=== PATIENT | male | born 1970 | race Caucasian/White ===

== ENCOUNTER 2019-11-23 12:53 | Emergency (ER) | payer OTHER ==
[2019-11-23 13:04] VITALS: BP 206/94
--- NOTE | 2019-11-23 13:04 | ER Document Report ---
HPI - HPI Patient complains to provider of: Right fourth finger injury Time Seen by Provider: 11/23/19 12:56 Onset: This morning Onset/Duration: Sudden Quality of pain: Achy Pain Level: 1 Context: Patient presents with right fourth finger deformity. Patient states that the dog's leash was around his hand and the dog took off to the side. Patient complains of pain only with movement of the finger. Associated Symptoms: Other - Right fourth finger injury Exacerbated by: Movement Relieved by: Remaining still Similar symptoms previously: No Recently seen / treated by doctor: No - ROS ROS below otherwise negative: Yes Systems Reviewed and Negative: Yes All other systems reviewed and negative - NEURO Neurology: DENIES: Weakness - GASTROINTESTINAL Gastrointestinal: DENIES: Nausea - MUSCULOSKELETAL Musculoskeletal: REPORTS: Extremity pain, Swelling - DERM Skin Color: Normal Skin Problems: None Past Medical History - General Information source: Patient - Social History Smoking Status: Never Smoker Frequency of alcohol use: None Drug Abuse: None Occupation: [employer] Lives with: Family Family History: Reviewed & Not Pertinent - Medical History Medical History: Negative - Past Medical History Cardiac Medical History: Denies: Hx Hypertension Surgical Hx: Negative Vertical Provider Document - CONSTITUTIONAL Agree With Documented VS: Yes Exam Limitations: No Limitations General Appearance: WD/WN, No Apparent Distress - HEENT HEENT: Atraumatic, Normocephalic - NECK Neck: Normal Inspection - RESPIRATORY Respiratory: Breath Sounds Normal, No Respiratory Distress - CARDIOVASCULAR Cardiovascular: Regular Rate, Regular Rhythm Pulses: Normal: Radial - BACK Back: Normal Inspection - MUSCULOSKELETAL/EXTREMETIES Musculoskeletal/Extremeties: Tender - Right fourth finger deformity with tenderness to the PIP joint middle phalanx, normal capillary refill - NEURO Level of Consciousness: Awake, Alert, Appropriate Motor/Sensory: No Sensory Deficit - DERM Integumentary: Warm, Dry Course - Re-evaluation Re-evalutation: 11/23/19 13:04 The patient has been informed that they may have pre-hypertension or hypertensi on based on a blood pressure reading in the emergency department. I recommend that patient call the primary care provider listed on their discharge instructions or a physician of their choice by this week to arrange follow-up for further evaluation of possible pre-hypertension or hypertension. 11/23/19 14:09 Dr. Alexandra to bedside for examination, Dr. Keen, orthopedic surgeon to bedside for examination. Unable to reduce finger, recommends having patient set up for surgery for tomorrow for repair. Patient states that he has to leave to go back to [place]. Patient insistent that he cannot stay for surgical repair. Patient advised that he should follow-up with the emergency department upon his arrival home and that he should not eat anything after midnight so that he may still be able to get an expedited surgery. Dr. Keen attempted reduction, he feels that patient will be most comfortable in a position of comfort at this time, does not recommend any splinting. - Diagnostic Test Radiology reviewed: Image reviewed, Reports reviewed Discharge - Discharge Clinical Impression: Elevated blood pressure reading Finger dislocation Qualifiers: Encounter type: initial encounter Qualified Code(s): S63.259A - Unspecified dislocation of unspecified finger, initial encounter Disposition: AGAINST MEDICAL ADVICE Additional Instructions: Return immediately if you would like to continue with your treatment. Follow-up with an emergency department tomorrow for evaluation by an orthopedic surgeon as you need surgical repair of the finger. It is advised that you stay and have a surgical repair of the finger. Do not eat anything after midnight so that when you present to the emergency department at home it may help to expedite your surgical repair. Referrals: ALBANIA KEEN JR, DO [ACTIVE PROVISIONAL STAFF] - Follow up as needed
[2019-11-23] MEDS ORDERED: LIDOCAINE 1% INJ (10 MG/ML) 10 ML MDV INJ ONE (13:30)
--- NOTE | 2019-11-23 14:14 | RADIOLOGY REPORT (SQ) ---
EXAM DESCRIPTION: FINGER RIGHT IMAGES COMPLETED DATE/TIME: 11/23/2019 1:27 pm REASON FOR STUDY: r 4th finger, pulled in dog leash COMPARISON: None. NUMBER OF VIEWS: Three views. TECHNIQUE: AP, lateral, and oblique images acquired of the right fourth finger. LIMITATIONS: None. FINDINGS: MINERALIZATION: Normal. BONES: There is subluxation of the 4th proximal interphalangeal joint. SOFT TISSUES: No soft tissue swelling. No foreign body. OTHER: No other significant finding. IMPRESSION: There is subluxation of the 4th proximal interphalangeal joint. No fracture is seen. COMMENT: SITE OF TRAUMA/COMPLAINT MARKED/STAMP COMPLETED: Yes TECHNICAL DOCUMENTATION: JOB ID: [id number] [employer]- All Rights Reserved Reading location - IP/workstation name: [email or web address]
== END 2019-11-23 14:28 | disposition left against medical advice (07) ==
LOC: ER 12:53
DX: S63.284A Dislocation of proximal interphalangeal joint of right ring finger, initial encounter (principal); W23.0XXA Caught, crushed, jammed, or pinched between moving objects, initial encounter; R03.0 Elevated blood-pressure reading, without diagnosis of hypertension
CPT/HCPCS: 99283